=== PATIENT | female | born 1955 | race Caucasian/White ===

== ENCOUNTER 2021-01-09 18:55 | Emergency (ER) | payer OTHER ==
[2021-01-09] MEDS ORDERED: Ibuprofen 800 MG TAB ONE (19:52)
== END 2021-01-09 20:54 | disposition home or self-care (01) ==
LOC: MADERS 18:55
DX: M25.562 Pain in left knee (principal); W22.8XXA Striking against or struck by other objects, initial encounter; Y92.511 Restaurant or cafe as the place of occurrence of the external cause